=== PATIENT | female | born 1955 | race Caucasian/White ===

== ENCOUNTER 2018-01-03 17:35 | Inpatient (IN) ==
--- NOTE | 2018-01-03 18:04 | Emergency Department Note ---
Disposition Clinical Impression: COPD exacerbation, Hypoxia Disposition: Admitted As Inpatient Condition: Good Referrals: Malachi King MD [Primary Care Provider] - Forms: ED Satisfaction Letter Chest Pain HPI - General Chief Complaint: ED Shortness of Breath/Dyspnea Stated Complaint: KATHIE; chest pain Time Seen by Provider: 01/03/18 17:37 Source: patient Mode of arrival: EMS Limitations: no limitations Vital Signs Reviewed: Yes Nursing Notes Reviewed: Yes - History of Present Illness HPI Narrative: I have re-performed and reviewed the history documented by the medical student, and I confirm its accuracy except as noted below 62-year-old female history of COPD no oxygen dependency, hypertension, presents to the ER with a complaint of shortness of breath and exertional dyspnea. Worsening over the last month. She is not a cough lately. She reports symptoms are worse with exertion. No prior admissions for COPD. She has been coughing lately with wheezing. She is on her inhalers at home. She wears oxygen as needed. No history of DVT or PE. Pt complaint: other (shortness of breath, cough) Onset (ago): week(s) Duration: intermittent Onset: during exertion Pain Location: other (Back) Severity: mild Severity scale (1-10): 2 Pain Radiation: none Improves with: rest Worsens with: exertion Associated symptoms: Reports: dyspnea. Denies: nausea, vomiting, diaphoresis Treatments prior to arrival chest pain: none - Related Data On Oral Contraceptives: No Home Medications Medication Instructions Recorded Confirmed Amitriptyline [Elavil] 10 mg PO HS 02/04/17 02/04/17 Diltiazem CD (24hr) [Cardizem CD] 120 mg PO TID 02/04/17 02/04/17 Etodolac [Lodine] 400 mg PO BID 02/04/17 02/04/17 Furosemide [Lasix] 40 mg PO TID 02/04/17 02/04/17 Losartan [Cozaar] 25 mg PO DAILY 02/04/17 02/04/17 Metoprolol [Lopressor] 25 mg PO BID 02/04/17 02/04/17 Montelukast [Singulair] 10 mg PO HS 02/04/17 02/04/17 Omeprazole [PriLOSEC] 40 mg PO DAILY 02/04/17 02/04/17 Sertraline [Zoloft] 50 mg PO DAILY 02/04/17 02/04/17 Previous Rx's Medication Instructions Recorded Azithromycin [Azithromycin 6-Tab 250 mg PO PER PKG DI #6 tab 02/04/17 Pack] predniSONE [PredniSONE] 20 mg PO DAILY #10 tablet 02/04/17 Allergies Allergy/AdvReac Type Severity Reaction Status Date / Time codeine AdvReac Hives Verified 02/04/17 08:01 Penicillins AdvReac Difficulty Verified 02/04/17 08:01 Breathing Sulfa (Sulfonamide AdvReac Rash Verified 02/04/17 08:01 Antibiotics) All systems ED: reviewed and negative except as stated. Constitutional: Denies: fever Cardiovascular: Denies: chest pain Respiratory: Reports: cough, dyspnea, wheezes, sputum production Gastrointestinal: Denies: abdominal pain, nausea, vomiting Chest Pain PMH - Past Medical History Medical history: Reports: asthma, atrial fibrillation, CHF, COPD, GERD, hypertension Surgical history: Reports: cholecystectomy, hysterectomy, orthopedic, other Psychiatric history: Reports: anxiety, depression - Social History Smoking Status: Current every day smoker Alcohol use: Reports: none Drug use: Reports: none Physical Exam - General Limitations: no limitations General appearance: alert, in no apparent distress - Head Head exam: atraumatic, normocephalic - Eye Eye exam: Present: normal appearance - ENT ENT exam: normal exam - Neck Neck exam: Present: normal inspection - Chest Chest inspection: Present: normal inspection, symmetric chest wall rise - Respiratory Respiratory exam: Present: wheezes (Diffuse end expiratory wheezing.), prolonged expiratory phase - Cardiovascular Cardiovascular exam: Present: regular rate, normal rhythm, normal heart sounds - Abdominal Exam Abdominal exam: Present: soft, Non-Tender. Absent: tenderness, distention, rigidity - Extremities Exam Extremities exam: Present: normal inspection, full ROM - Expanded Upper Extremity Exam Shoulder exam: Present: normal inspection, full ROM Arm exam: Present: normal inspection, full ROM Elbow exam: Present: normal inspection, full ROM Forearm/Wrist exam: Present: normal inspection, full ROM Hand exam: Present: normal inspection, full ROM - Expanded Lower Extremity Exam Hip/Pelvis exam: Present: normal inspection, full ROM Upper leg exam: Present: normal inspection, full ROM Knee exam: Present: normal inspection, full ROM Lower leg exam: Present: normal inspection, full ROM Ankle exam: Present: normal inspection, full ROM Foot/toe exam: Present: normal inspection, full ROM - Skin Skin exam: Present: warm, dry Course Course Narrative: Patient seen and examined. Vital signs reviewed. 94% on room air here. Plan for EKG chest x-ray labs duo nebs and steroids. Vital Signs Temperature 98.8 F 01/03/18 17:44 Pulse Rate 79 01/03/18 17:44 Respiratory Rate 16 01/03/18 17:44 Blood Pressure 164/83 01/03/18 17:44 O2 Sat by Pulse Oximetry 96 01/03/18 17:44 Temperature 98.8 F 01/03/18 17:44 Pulse Rate 76 01/03/18 18:25 Respiratory Rate 16 01/03/18 18:43 Blood Pressure 136/71 01/03/18 18:25 O2 Sat by Pulse Oximetry 95 01/03/18 18:43 Oxygen Delivery Oxygen Delivery Nasal Cannula Chest Pain - MDM Narrative Medical decision making narrative: 62-year-old female presenting with one month of worsening dyspnea on exertion with underlying COPD. Has oxygen requirement here 3 L nasal cannula. EKG and chest x-ray unremarkable. Labs are grossly unremarkable. She desatted here with ambulation. Given DuoNeb treatments, steroids as well as Levaquin. Admitted for COPD exacerbation and hypoxia. - Lab Data Lab results reviewed: Yes I reviewed the patient's lab results. Result diagrams: 01/03/18 18:00 01/03/18 18:00 Lab Results 01/03/18 01/03/18 01/03/18 Range/Units 18:00 18:00 18:00 WBC 11.9 H (4.3-11.1) K/mcL RBC 4.91 (3.82-4.97) M/mcL Hgb 16.0 H (11.5-15.4) g/dL Hct 47.7 H (35.3-44.9) % MCV 97.1 (83.0-100.0) fL MCH 32.6 (28.0-33.3) pg MCHC 33.5 (31.6-35.5) g/dL RDW 14.5 (11.5-14.5) % Plt Count 255 (140-400) K/mcL MPV 9.2 L (9.4-12.4) fL Immature Gran % 0.2 (0-4) % Seg Neutrophils % 78.4 % Lymphocytes % 13.4 % Monocytes % 7.7 % Eosinophils % 0.0 % Basophils % 0.3 % Neutrophils # 9.3 H (1.6-8.9) K/mcL Lymphocytes # 1.6 (0.6-4.6) K/mcL Monocytes # 0.9 (0.0-1.3) K/mcL Eosinophils # 0.0 (0.0-0.6) K/mcL Basophils # 0.0 (0.0-0.2) K/mcL Sodium 136 (136-145) mEq/L Potassium 4.3 (3.5-5.1) mEq/L Chloride 104 (98-107) mEq/L Carbon Dioxide 25 (23-29) mEq/L BUN 16 (8-23) mg/dL Creatinine 0.79 (0.60-1.20) mg/dL Est GFR ( Amer) > 60 (> 60) Est GFR (Non-Af Amer) > 60 (> 60) BUN/Creatinine Ratio 20 (6-26) Glucose 99 (70-105) mg/dL Calculated Osmolality 283 (280-300) Calcium 9.6 (8.6-10.3) mg/dL Troponin I < 0.03 (< 0.04) ng/mL B-Natriuretic Peptide 39 (Less than 100) pg/mL - Radiology Data Radiology results reviewed: Yes I reviewed the patient's radiology results. Chest X-Ray 01/03/18 17:48 IMPRESSION: No acute findings. No change. D/ / Osei Roberto MD / Osei Roberto MD Interpreting Provider: Osei Roberto MD - EKG Data EKG attestation: Yes I reviewed and interpreted this EKG. EKG results narrative: EKG demonstrates sinus rhythm with a rate of 74 bpm. Normal axis. Normal intervals. Normal R-wave progression. No gross ST elevations or depressions. No acute ischemic findings. No significant changes from prior EKG dated . Heart Score - Score History: Slightly Suspicious EKG: Normal Age: Less than 45 Risk Factors: 1-2 risk factors Troponin: Less than normal limit HEART Score Total: 1 S.Ana - Ramón Situation: Demographics, MOA Background: Presenting Complaint, Relevant PMH, Meds, & Allergies Assessment: Vital Signs, Course and respsone to treatment, Exam Concerns, Patient/Family Expectation, Pertinant Lab Results Recommendation: Barrier(s) to disposition, Recommendation based on pending studies, treatments, or consults Ramón Report Given to: Dr Maria Guadalupe Melgar Repor Time: 19:44
[2018-01-03] MEDS ORDERED: methylPREDNISolone 125 MG/2 ML VIAL IVP ONE (18:06)
[2018-01-03] MEDS ORDERED: Ipratropium/Albuterol Neb 3 ML IH ONE (18:06)
--- NOTE | 2018-01-03 18:21 | Emergency Department Note ---
Disposition Clinical Impression: Dyspnea Disposition: Still a Patient Forms: ED Satisfaction Letter SOB HPI - General Chief Complaint: ED Shortness of Breath/Dyspnea Stated Complaint: KATHIE; chest pain Time Seen by Provider: 01/03/18 17:37 Source: patient Mode of arrival: ambulatory Limitations: no limitations Vital Signs Reviewed: Yes - History of Present Illness Ms. Gray is a 62 yo F presents with a HxO COPD that has had progressive exertional dyspnea and back pain that is pluritic and exertional. She has required continuous oxygen per nasal canula over the last week which she guy used previously. - Related Data Home Medications Medication Instructions Recorded Confirmed Amitriptyline [Elavil] 10 mg PO HS 02/04/17 02/04/17 Diltiazem CD (24hr) [Cardizem CD] 120 mg PO TID 02/04/17 02/04/17 Etodolac [Lodine] 400 mg PO BID 02/04/17 02/04/17 Furosemide [Lasix] 40 mg PO TID 02/04/17 02/04/17 Losartan [Cozaar] 25 mg PO DAILY 02/04/17 02/04/17 Metoprolol [Lopressor] 25 mg PO BID 02/04/17 02/04/17 Montelukast [Singulair] 10 mg PO HS 02/04/17 02/04/17 Omeprazole [PriLOSEC] 40 mg PO DAILY 02/04/17 02/04/17 Sertraline [Zoloft] 50 mg PO DAILY 02/04/17 02/04/17 Previous Rx's Medication Instructions Recorded Azithromycin [Azithromycin 6-Tab 250 mg PO PER PKG DI #6 tab 02/04/17 Pack] predniSONE [PredniSONE] 20 mg PO DAILY #10 tablet 02/04/17 Allergies Allergy/AdvReac Type Severity Reaction Status Date / Time codeine AdvReac Hives Verified 02/04/17 08:01 Penicillins AdvReac Difficulty Verified 02/04/17 08:01 Breathing Sulfa (Sulfonamide AdvReac Rash Verified 02/04/17 08:01 Antibiotics) Constitutional: Reports: chills. Denies: fever Cardiovascular: Reports: dyspnea on exertion. Denies: chest pain, palpitations , edema, syncope Respiratory: Reports: dyspnea, wheezes. Denies: cough, sputum production Gastrointestinal: Reports: abdominal pain, nausea. Denies: vomiting, diarrhea, constipation Genitourinary: Denies: frequency, hematuria Neurological: Denies: headache, weakness, numbness Past Medical History - Past Medical History Medical history: Reports: asthma, atrial fibrillation, CHF, COPD, GERD, hypertension Surgical history: Reports: cholecystectomy, hysterectomy, orthopedic, other Psychiatric history: Reports: anxiety, depression - Social History Smoking Status: Current every day smoker Smokeless Tobacco Status: No Alcohol use: Reports: none Drug use: Reports: none Physical Exam - General Limitations: no limitations General appearance: alert, in distress Course Vital Signs Temperature 98.8 F 01/03/18 17:44 Pulse Rate 79 01/03/18 17:44 Respiratory Rate 16 01/03/18 17:44 Blood Pressure 164/83 01/03/18 17:44 O2 Sat by Pulse Oximetry 96 01/03/18 17:44 Temperature 98.8 F 01/03/18 17:44 Pulse Rate 79 01/03/18 17:44 Respiratory Rate 16 01/03/18 17:44 Blood Pressure 164/83 01/03/18 17:44 O2 Sat by Pulse Oximetry 96 01/03/18 17:44 Oxygen Delivery Oxygen Delivery Nasal Cannula
[2018-01-03 18:35] LABS: Basophils % 0.3 %; Hematocrit 47.7 % (35.3-44.9); Immature Granulocytes % 0.2 % (0-4); Lymphocytes # 1.6 K/mcL (0.6-4.6); Lymphocytes % 13.4 %; Mean Corpuscular HGB Conc 33.5 g/dL (31.6-35.5); Mean Corpuscular Hemoglobin 32.6 pg (28.0-33.3); Mean Corpuscular Volume 97.1 fL (83.0-100.0); Mean Platelet Volume 9.2 fL (9.4-12.4); Monocytes # 0.9 K/mcL (0.0-1.3); Monocytes % 7.7 %; Neutrophils # 9.3 K/mcL (1.6-8.9); Platelet Count 255 K/mcL (140-400); Red Blood Count 4.91 M/mcL (3.82-4.97); Red Cell Distribution Width 14.5 % (11.5-14.5); Segmented Neutrophils % 78.4 %
[2018-01-03 19:04] LABS: BUN/Creatinine Ratio 20 (6-26); Blood Urea Nitrogen 16 mg/dL (8-23); Calcium 9.6 mg/dL (8.6-10.3); Carbon Dioxide 25 mEq/L (23-29); Chloride 104 mEq/L (98-107); Glucose 99 mg/dL (70-105); Osmolality,Calculated 283 (280-300); Potassium 4.3 mEq/L (3.5-5.1); Sodium 136 mEq/L (136-145); eGFR For Non-African Americans > 60 (> 60)
[2018-01-03 19:05] LABS: Troponin I < 0.03 ng/mL (< 0.04)
[2018-01-03] MEDS ORDERED: Levofloxacin 750 MG/150 ML 750 MG/150 ML BAG IVPB ONE (19:42)
--- NOTE | 2018-01-03 19:53 | Emergency Department Note ---
Disposition Clinical Impression: COPD exacerbation, Hypoxia Disposition: Admitted As Inpatient Condition: Good Referrals: Malachi King MD [Primary Care Provider] - Forms: ED Satisfaction Letter General Adult HPI - General Chief complaint: ED Shortness of Breath/Dyspnea Stated complaint: KATHIE; chest pain Time Seen by Provider: 01/03/18 17:37 Source: patient Mode of arrival: EMS Limitations: no limitations - History of Present Illness Pain Scale: 2 - Related Data Home Medications Medication Instructions Recorded Confirmed Amitriptyline [Elavil] 10 mg PO HS 02/04/17 02/04/17 Diltiazem CD (24hr) [Cardizem CD] 120 mg PO TID 02/04/17 02/04/17 Etodolac [Lodine] 400 mg PO BID 02/04/17 02/04/17 Furosemide [Lasix] 40 mg PO TID 02/04/17 02/04/17 Losartan [Cozaar] 25 mg PO DAILY 02/04/17 02/04/17 Metoprolol [Lopressor] 25 mg PO BID 02/04/17 02/04/17 Montelukast [Singulair] 10 mg PO HS 02/04/17 02/04/17 Omeprazole [PriLOSEC] 40 mg PO DAILY 02/04/17 02/04/17 Sertraline [Zoloft] 50 mg PO DAILY 02/04/17 02/04/17 Previous Rx's Medication Instructions Recorded Azithromycin [Azithromycin 6-Tab 250 mg PO PER PKG DI #6 tab 02/04/17 Pack] predniSONE [PredniSONE] 20 mg PO DAILY #10 tablet 02/04/17 Allergies Allergy/AdvReac Type Severity Reaction Status Date / Time codeine AdvReac Hives Verified 02/04/17 08:01 Penicillins AdvReac Difficulty Verified 02/04/17 08:01 Breathing Sulfa (Sulfonamide AdvReac Rash Verified 02/04/17 08:01 Antibiotics) Constitutional: Denies: fever Cardiovascular: Denies: chest pain Respiratory: Reports: cough, dyspnea, wheezes, sputum production Gastrointestinal: Denies: abdominal pain, nausea, vomiting Genitourinary: Denies: frequency, hematuria Neurological: Denies: headache, weakness, numbness Past Medical History - Past Medical History Medical history: Reports: asthma, atrial fibrillation, CHF, COPD, GERD, hypertension Surgical history: Reports: cholecystectomy, hysterectomy, orthopedic, other Psychiatric history: Reports: anxiety, depression - Social History Smoking Status: Current every day smoker Smokeless Tobacco Status: No Alcohol use: Reports: none Drug use: Reports: none Physical Exam - General Limitations: no limitations General appearance: alert, in no apparent distress Course Vital Signs Temperature 98.8 F 01/03/18 17:44 Pulse Rate 79 01/03/18 17:44 Respiratory Rate 16 01/03/18 17:44 Blood Pressure 164/83 01/03/18 17:44 O2 Sat by Pulse Oximetry 96 01/03/18 17:44 Temperature 98.8 F 01/03/18 17:44 Pulse Rate 76 01/03/18 18:25 Respiratory Rate 16 01/03/18 18:43 Blood Pressure 136/71 01/03/18 18:25 O2 Sat by Pulse Oximetry 95 01/03/18 18:43 Oxygen Delivery Oxygen Delivery Nasal Cannula Medical Decision Making - Lab Data Result diagrams: 01/03/18 18:00 01/03/18 18:00 Lab Results 01/03/18 01/03/18 01/03/18 Range/Units 18:00 18:00 18:00 WBC 11.9 H (4.3-11.1) K/mcL RBC 4.91 (3.82-4.97) M/mcL Hgb 16.0 H (11.5-15.4) g/dL Hct 47.7 H (35.3-44.9) % MCV 97.1 (83.0-100.0) fL MCH 32.6 (28.0-33.3) pg MCHC 33.5 (31.6-35.5) g/dL RDW 14.5 (11.5-14.5) % Plt Count 255 (140-400) K/mcL MPV 9.2 L (9.4-12.4) fL Immature Gran % 0.2 (0-4) % Seg Neutrophils % 78.4 % Lymphocytes % 13.4 % Monocytes % 7.7 % Eosinophils % 0.0 % Basophils % 0.3 % Neutrophils # 9.3 H (1.6-8.9) K/mcL Lymphocytes # 1.6 (0.6-4.6) K/mcL Monocytes # 0.9 (0.0-1.3) K/mcL Eosinophils # 0.0 (0.0-0.6) K/mcL Basophils # 0.0 (0.0-0.2) K/mcL Sodium 136 (136-145) mEq/L Potassium 4.3 (3.5-5.1) mEq/L Chloride 104 (98-107) mEq/L Carbon Dioxide 25 (23-29) mEq/L BUN 16 (8-23) mg/dL Creatinine 0.79 (0.60-1.20) mg/dL Est GFR ( Amer) > 60 (> 60) Est GFR (Non-Af Amer) > 60 (> 60) BUN/Creatinine Ratio 20 (6-26) Glucose 99 (70-105) mg/dL Calculated Osmolality 283 (280-300) Calcium 9.6 (8.6-10.3) mg/dL Troponin I < 0.03 (< 0.04) ng/mL B-Natriuretic Peptide 39 (Less than 100) pg/mL Attestation Statement - Attestation Attestation: I examined this patient and my medical decision-making was reviewed with the Resident Physician. I agree with the documented findings, disposition and treatment plan as described except to the extent set forth below. 62 year old female presents to the ED with complanits of hypoxia and wheezing and dyspnea with exertinal and has a hsitroy of COPD and an intial pulse ox of 78% and wear oxygen intermittently at her hosue but is currenty on conintous oxygen at 93% now. PAtinet workup is otherwise unremarkable but this is likely a COPD excberation wiht bronchitis and will need to be admitted to the hosital for continue pulmonary toilet
--- NOTE | 2018-01-03 20:15 | Internal Med History&Physical ---
Date of Encounter: 01/03/18 Time of Encounter: 20:10 Internal Medicine - H&P: HPI Chief complaint: SOB Admitted From: Home Plans for Post Hospital Care: Home History of present illness: Ms. Gray is a 62 year old woman with a history of longstanding and ongoing tobacco dependence with resultant COPD, hypertension, paroxysmal atrial fibrillation, anxiety disorder and depression who presents to the ER complaining of 1 month of progressive dyspnea on exertion with cough productive of thick yellow sputum and some low grade fevers which she states started with "allergies" but now over the last 3 days acutely worsened. She states that she has oxygen at home as needed which she rarely uses but now has needed it constantly. Here in the ER she was given triple nebulizer therapy, high dose steroids and levofloxacin. She was noted to desaturate to the 70s when walking and off oxygen. On my assessment she was sitting up in bed in no acute distress. She denies chest pain at anytime and feels only slightly better with the treatment thus far instituted. Past Med Surg Social Fam HX - Past Medical History Medical history: asthma, atrial fibrillation, CHF, COPD, GERD, hypertension Additional medical history: diverticulosis,heart arrhymia,sleep apnea Psychiatric history: anxiety, depression - Past Surgical History Surgical History: cholecystectomy, hysterectomy, orthopedic, other Additional surgical history: l wrist,r eye - Social History Smoking Status: Current every day smoker Smokeless Tobacco Status: No Alcohol use: none Drug use: none Internal Medicine - H&P: Meds Amitriptyline [Elavil] 10 mg PO HS 02/04/17 [History] Azithromycin [Azithromycin 6-Tab Pack] 250 mg PO PER PKG DI #6 tab 02/04/17 [Rx] Diltiazem CD (24hr) [Cardizem CD] 120 mg PO TID 02/04/17 [History] Etodolac [Lodine] 400 mg PO BID 02/04/17 [History] Furosemide [Lasix] 40 mg PO TID 02/04/17 [History] Losartan [Cozaar] 25 mg PO DAILY 02/04/17 [History] Metoprolol [Lopressor] 25 mg PO BID 02/04/17 [History] Montelukast [Singulair] 10 mg PO HS 02/04/17 [History] Omeprazole [PriLOSEC] 40 mg PO DAILY 02/04/17 [History] Sertraline [Zoloft] 50 mg PO DAILY 02/04/17 [History] predniSONE [PredniSONE] 20 mg PO DAILY #10 tablet 02/04/17 [Rx] 3 Allergy/AdvReac Type Severity Reaction Status Date / Time codeine AdvReac Hives Verified 02/04/17 08:01 Penicillins AdvReac Difficulty Verified 02/04/17 08:01 Breathing Sulfa (Sulfonamide AdvReac Rash Verified 02/04/17 08:01 Antibiotics) All Systems PM: A 10-system review of systems was performed and is negative for pertinent findings except as documented above in the HPI. - Constitutional Vitals: Temp Pulse Resp BP Pulse Ox 98.8 F 76 16 136/71 95 01/03/18 17:44 01/03/18 18:25 01/03/18 18:43 01/03/18 18:25 01/03/18 18:43 Exam: Vitals: Reviewed General: Obese white woman, NAD, no audible wheezes Skin: Warm and supple. HEENT: Slight dry mucous membranes. No conjunctivae pallor. Neck: No lymphadenopathy. No JVD. No carotid bruits. No palpable thyroid. Chest: Diminished thoracic expansion. Reduced air entry bilaterally with scattered wheezes in both lung falcon. Heart: Normal S1 & S2; rhythmic. Abdomen: Non-distended, soft and non-tender to palpation. No peritoneal reaction. Extremities: No clubbing, cyanosis or edema. No calf tenderness. Normal distal pulses. Neurological: Awake, alert and oriented to person, place and time. No focal deficits. Psych: Affect appropriate. Internal Med - H&P Results - Labs CBC & Chem 7: 01/03/18 18:00 01/03/18 18:00 Labs: Short CBC 01/03/18 Range/Units 18:00 WBC 11.9 H (4.3-11.1) K/mcL Hgb 16.0 H (11.5-15.4) g/dL Hct 47.7 H (35.3-44.9) % Plt Count 255 (140-400) K/mcL Neutrophils # 9.3 H (1.6-8.9) K/mcL BMP 01/03/18 18:00 Sodium 136 Potassium 4.3 Chloride 104 Carbon Dioxide 25 BUN 16 Creatinine 0.79 Glucose 99 Calcium 9.6 Cardiac Enzymes 01/03/18 Range/Units 18:00 Troponin I < 0.03 (< 0.04) ng/mL - Impressions ITS Impressions Chest X-Ray 01/03/18 17:48 IMPRESSION: No acute findings. No change. D/ / Osei Roberto MD / Osei Roberto MD Interpreting Provider: Osei Roberto MD - Assessment and plan (1) COPD exacerbation Current Visit: Yes Status: Acute Assessment and plan: Severe with mild response to ER treatment. Associated with ongoing smoking habit. Will place on albuterol/ipratropium q4hrs Prednisone 60mg daily Azithromycin 500mg daily x 3 days Monitor respiratory status for need for NIPPV (2) Acute respiratory failure with hypoxia Current Visit: Yes Status: Acute Assessment and plan: Secondary to COPD exacerbation. May require an increase in home oxygen need or make it more continuous rather than prn. Will keep on supplemental O2 to maintain SpO2 >92% Will check TTE to assess for cor pulmonale. (3) Tobacco dependence Current Visit: Yes Status: Chronic Assessment and plan: Counseled extensively on the need to stop this habit. Resources made available. (4) SOPHY and COPD overlap syndrome Current Visit: Yes Status: Chronic Assessment and plan: Will place on CPAP qhs. (5) Hypertension Current Visit: Yes Status: Acute Assessment and plan: Will resume home antihypertensives. Qualifiers: Hypertension type: essential hypertension Qualified Code(s): I10 - Essential (primary) hypertension (6) Anxiety Current Visit: Yes Status: Chronic Assessment and plan: Will resume anxiolytic medications. (7) Afib Current Visit: Yes Status: Chronic Assessment and plan: Paroxysmal. Currently in sinus rhythm and rate controlled. Will continue diltiazem. Qualifiers: Atrial fibrillation type: paroxysmal Qualified Code(s): I48.0 - Paroxysmal atrial fibrillation (8) DVT prophylaxis Current Visit: Yes Status: Acute Assessment and plan: SubQ heparin indicated. - Time Spent With Patient Total time spent is greater than 50% in coordination of care (as documented) at patient's floor/unit and/or counseling patient: Greater than 35 minutes
[2018-01-03] MEDS ORDERED: Ringers Solution, Lactated 1,000 ML IVC SCH (20:30)
[2018-01-03] MEDS: Diltiazem CD (24hr) 120 MG CAPSULE PO SCH (22:29)
[2018-01-03] MEDS: *HR* Heparin 5,000 UNIT/ML VIAL SQ SCH (22:30)
[2018-01-03] MEDS ORDERED: NON-FORMULARY MEDICATION 1 EACH EACH (Lorazepam [Lorazepam] 2 MG) PO SCH (23:00)
[2018-01-03] MEDS ORDERED: *HR* LORazepam 1 MG TABLET PO SCH (23:15)
[2018-01-03] MEDS: Ipratropium/Albuterol Neb 3 ML IH SCH (23:35)
[2018-01-04] MEDS: Ipratropium/Albuterol Neb 3 ML IH SCH ×3 (03:49→11:13)
[2018-01-04] MEDS ORDERED: Azithromycin 500 MG in D5% in Water 250 ML IVPB SCH (09:00)
[2018-01-04] MEDS ORDERED: predniSONE 20 MG TABLET PO SCH (09:00)
[2018-01-04] MEDS ORDERED: methylPREDNISolone 125 MG/2 ML VIAL IVP SCH (09:17)
--- NOTE | 2018-01-04 09:27 | Internal Med Progress Note ---
Hospitalist Progress Note - Encounter Date of Encounter: 01/04/18 Time of Encounter: 09:25 - Exam Vitals: Temp Pulse Resp BP Pulse Ox 97.4 F L 89 20 134/79 93 01/04/18 07:23 01/04/18 07:23 01/04/18 07:23 01/04/18 07:23 01/04/18 07:23 Exam: Vitals: Reviewed General: Obese white woman, NAD, no audible wheezes Skin: Warm and supple. HEENT: Slight dry mucous membranes. No conjunctivae pallor. Neck: No lymphadenopathy. No JVD. No carotid bruits. No palpable thyroid. Chest: Diminished thoracic expansion. Reduced air entry bilaterally with scattered wheezes in both lung falcon. Heart: Normal S1 & S2; rhythmic. Abdomen: Non-distended, soft and non-tender to palpation. No peritoneal reaction. Extremities: No clubbing, cyanosis or edema. No calf tenderness. Normal distal pulses. Neurological: Awake, alert and oriented to person, place and time. No focal deficits. Psych: Affect appropriate. - Assessment and Plan (1) Acute respiratory failure with hypoxia Current Visit: Yes Status: Acute Assessment and Plan: Secondary to COPD exacerbation. May require an increase in home oxygen need or make it more continuous rather than prn. Will keep on supplemental O2 to maintain SpO2 >92% Will check TTE to assess for cor pulmonale. (2) COPD exacerbation Current Visit: Yes Status: Acute Assessment and Plan: Severe with mild response to ER treatment. Associated with ongoing smoking habit. Will place on albuterol/ipratropium q4hrs Will start on IV steroids and taper to po Levaquin 750mg IV daily Monitor respiratory status for need for NIPPV (3) Hypertension Current Visit: Yes Status: Acute Assessment and Plan: Will resume home antihypertensives. (4) Tobacco dependence Current Visit: Yes Status: Chronic Assessment and Plan: Counseled extensively on the need to stop this habit. Resources made available. (5) Anxiety Current Visit: Yes Status: Chronic Assessment and Plan: Will resume anxiolytic medications. (6) DVT prophylaxis Current Visit: Yes Status: Acute Assessment and Plan: SubQ heparin indicated. (7) SOPHY and COPD overlap syndrome Current Visit: Yes Status: Chronic Assessment and Plan: Will place on CPAP qhs. (8) Afib Current Visit: Yes Status: Chronic Assessment and Plan: Paroxysmal. Currently in sinus rhythm and rate controlled. Will continue diltiazem. - Time Spent with Patient Total time spent is greater than 50% in coordination of care (as documented) at patient's floor/unit and/or counseling patient: Internal Medicine: Result - Labs CBC & Chem 7: 01/03/18 18:00 01/03/18 18:00 Consult Discharge Plan - Plan Referrals: Malachi King MD [Primary Care Provider] - (3) Hypertension Qualifiers: Hypertension type: essential hypertension Qualified Code(s): I10 - Essential (primary) hypertension (8) Afib Qualifiers: Atrial fibrillation type: paroxysmal Qualified Code(s): I48.0 - Paroxysmal atrial fibrillation
[2018-01-04] MEDS: *HR* Heparin 5,000 UNIT/ML VIAL SQ SCH (09:33)
[2018-01-04] MEDS: Diltiazem CD (24hr) 120 MG CAPSULE PO SCH (09:34)
--- NOTE | 2018-01-04 09:59 | Discharge Summary ---
Orders not resulted at time of discharge: Pending orders 01/03/18 20:26 EV echocardiogram Routine 01/04/18 09:18 CBC [Complete Blood Count] [HEME] Routine 01/05/18 04:00 Basic Metabolic Panel AM 0400 CBC [Complete Blood Count] [HEME] AM 0400 01/06/18 04:00 Basic Metabolic Panel AM 0400 CBC [Complete Blood Count] [HEME] AM 0400 01/07/18 04:00 Basic Metabolic Panel AM 0400 CBC [Complete Blood Count] [HEME] AM 0400 01/08/18 04:00 Basic Metabolic Panel AM 0400 CBC [Complete Blood Count] [HEME] AM 0400 01/09/18 04:00 Basic Metabolic Panel AM 0400 CBC [Complete Blood Count] [HEME] AM 0400 01/10/18 04:00 Basic Metabolic Panel AM 0400 CBC [Complete Blood Count] [HEME] AM 0400 Date of Encounter: 01/04/18 Time of Encounter: 09:55 - Discharge Diagnosis (1) Acute respiratory failure with hypoxia Priority: Primary Status: Acute Assessment and Plan: 62 year old woman with a history of longstanding and ongoing tobacco dependence with resultant COPD, hypertension, paroxysmal atrial fibrillation, anxiety disorder and depression who presents to the ER complaining of 1 month of progressive dyspnea on exertion with cough productive of thick yellow sputum and some low grade fevers which she states started with "allergies" but now over the last 3 days acutely worsened. She states that she has oxygen at home as needed which she rarely uses but now has needed it constantly. She was assessed with acute hypoxic respiratory failure secondary to COPD exacerbation. She was started on nebs , steroids and antibiotics and made a remarkable symptomatic improvement by the next day. With a sooner than anticipated improvement, she was discharged on a course of steroids, and antibiotics. She was also given a script for home oxygen (2) COPD exacerbation Priority: Primary Status: Acute (3) Hypertension Priority: Secondary Status: Acute Qualifiers: Hypertension type: essential hypertension Qualified Code(s): I10 - Essential (primary) hypertension (4) Tobacco dependence Priority: Secondary Status: Chronic (5) Anxiety Priority: Secondary Status: Chronic (6) DVT prophylaxis Priority: Secondary Status: Acute (7) SOPHY and COPD overlap syndrome Priority: Secondary Status: Chronic (8) Afib Priority: Secondary Status: Chronic Qualifiers: Atrial fibrillation type: paroxysmal Qualified Code(s): I48.0 - Paroxysmal atrial fibrillation Hospital course: Ms. Gray is a 62 year old female - Time Spent with Patient Total time spent providing and/or coordinating discharge services: - Discharge Medications Prescriptions: Benzonatate [Tessalon] 200 mg PO TID PRN 7 Days #30 capsule PRN Reason: Cough levoFLOXacin [Levaquin] 750 mg PO DAILY #3 tablet predniSONE [PredniSONE] 40 mg PO DAILY 5 Days #10 tablet Home Medications: Amitriptyline [Elavil] 10 mg PO HS 02/04/17 [History] Diltiazem CD (24hr) [Cardizem CD] 120 mg PO TID 02/04/17 [History] Etodolac [Lodine] 400 mg PO BID 02/04/17 [History] Furosemide [Lasix] 40 mg PO TID 02/04/17 [History] Losartan [Cozaar] 25 mg PO DAILY 02/04/17 [History] Metoprolol [Lopressor] 25 mg PO BID 02/04/17 [History] Montelukast [Singulair] 10 mg PO HS 02/04/17 [History] Omeprazole [PriLOSEC] 40 mg PO DAILY 02/04/17 [History] Sertraline [Zoloft] 50 mg PO DAILY 02/04/17 [History] LORazepam [Lorazepam] 2 mg PO HS 01/03/18 [History] Benzonatate [Tessalon] 200 mg PO TID PRN 7 Days #30 capsule 01/04/18 [Rx] levoFLOXacin [Levaquin] 750 mg PO DAILY #3 tablet 01/04/18 [Rx] predniSONE [PredniSONE] 40 mg PO DAILY 5 Days #10 tablet 01/04/18 [Rx] Allergies/Adverse Reactions: 3 Allergy/AdvReac Type Severity Reaction Status Date / Time codeine AdvReac Hives Verified 02/04/17 08:01 Penicillins AdvReac Difficulty Verified 02/04/17 08:01 Breathing Sulfa (Sulfonamide AdvReac Rash Verified 02/04/17 08:01 Antibiotics) Date of admission: 01/03/18 20:22 Primary care physician: Malachi King MD - Constitutional Vitals: Temp Pulse Resp BP Pulse Ox 97.4 F L 89 20 134/79 93 01/04/18 07:23 01/04/18 07:23 01/04/18 07:23 01/04/18 07:23 01/04/18 07:23 Exam: Vitals: Reviewed General: Obese white woman, NAD, no audible wheezes Skin: Warm and supple. HEENT: Slight dry mucous membranes. No conjunctivae pallor. Neck: No lymphadenopathy. No JVD. No carotid bruits. No palpable thyroid. Chest: Diminished thoracic expansion. Reduced air entry bilaterally with scattered wheezes in both lung falcon. Heart: Normal S1 & S2; rhythmic. Abdomen: Non-distended, soft and non-tender to palpation. No peritoneal reaction. Extremities: No clubbing, cyanosis or edema. No calf tenderness. Normal distal pulses. Neurological: Awake, alert and oriented to person, place and time. No focal deficits. Psych: Affect appropriate. - Patient Status Disposition: Home, Self-Care Condition: Good - Discharge Instructions Instructions: Benzonatate (By mouth), Prednisone (By mouth), Levofloxacin (By mouth), Atrial Fibrillation (DC), Acute Respiratory Distress Syndrome (DC), Chronic Obstructive Pulmonary Disease (DC), Chronic Hypertension (DC), Anxiety ( DC) Follow Up With: Malachi King MD [Primary Care Provider] - (please call the office tomorrow and schedule a follow up appointment for 5-7 days)
[2018-01-04 10:08] LABS: Basophils % 0.1 %; Hematocrit 44.2 % (35.3-44.9); Hemoglobin 14.9 g/dL (11.5-15.4); Immature Granulocytes % 0.6 % (0-4); Lymphocytes % 8.1 %; Mean Corpuscular HGB Conc 33.7 g/dL (31.6-35.5); Mean Corpuscular Hemoglobin 32.7 pg (28.0-33.3); Mean Corpuscular Volume 96.9 fL (83.0-100.0); Mean Platelet Volume 9.2 fL (9.4-12.4); Monocytes # 0.8 K/mcL (0.0-1.3); Neutrophils # 10.9 K/mcL (1.6-8.9); Platelet Count 230 K/mcL (140-400); Red Blood Count 4.56 M/mcL (3.82-4.97); Red Cell Distribution Width 14.4 % (11.5-14.5); Segmented Neutrophils % 85.2 %
[2018-01-04] MEDS ORDERED: Perflutren Lipid Microsphere 1.3 ML in 0.9 % Sodium Chloride 8.7 ML IVP ONE (11:00)
[2018-01-04 11:35] VITALS: BP 121/70
[2018-01-04] MEDS ORDERED: Levofloxacin 750 MG/150 ML 750 MG/150 ML BAG IVPB SCH (20:00)
--- NOTE | 2018-01-06 22:31 | Electrocardiograph Report ---
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
== END 2018-01-04 13:35 | disposition home or self-care (01) | DRG 190 ==
LOC: EMEROOARM 17:35 → 2NENU 20:22
PROVIDERS: ADMIT Internal Medicine; ATTEND Internal Medicine